=== PATIENT | female | born 2005 | race Caucasian/White ===

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

== ENCOUNTER 2023-11-02 02:03 | Emergency (ER) | payer OTHER, SELFPAY ==
[2023-11-02 02:10] VITALS: BP 128/73; PULSE 87; RESP 22; TEMP 36.4; O2SAT 99; BMI 23.3
--- NOTE | 2023-11-02 02:27 | ED_ITS ---
HPI - Asthma General Chief Complaint: Asthma Stated Complaint: asthma flair up Time Seen by Provider: 11/02/23 02:11 Source: patient Mode of arrival: Ambulatory History of Present Illness HPI Narrative: 18-year-old woman with a history of mild intermittent asthma typically uses her inhaler prior to exercise only presents after an episode of bronchospasm this afternoon. Her aunt and uncle are visiting a brought their dog, she knows that she is allergic to dogs. She has been taking xyzal/levocetirizine daily for the last couple of days and finds that that does help somewhat. The bronchospasm episode was quite frightening for her and she felt that she could not inhale even enough to use her inhaler. Her father had a nebulized albuterol dose and she use this and found it quite helpful. With the increased bronchospasm mom is wondering if there is panic component to the increasing wheeze. There has been no fevers, cough, chills. No nausea vomiting or diarrhea. Related Data Previous Rx's Medication Instructions Recorded azithromycin 250 mg tablet See Rx Instructions PO .COMPLEX #6 04/17/21 tabs prednisone 20 mg tablet 20 mg PO DAILY #5 tabs 04/17/21 prednisone 20 mg tablet 20 mg PO DAILY #5 tabs 10/05/21 prednisone 20 mg tablet 40 mg (2 x 20 mg) PO DAILY #10 tabs 11/02/22 albuterol sulfate 2.5 mg/3 mL 2.5 mg (3 mL) inhalation Q4-6H PRN 11/02/23 (0.083 %) solution for nebulization bronchospasm #75 mL Allergies Allergy/AdvReac Type Severity Reaction Status Date / Time No Known Drug Allergies Allergy Verified 10/05/21 21:51 Review of Systems Review of Systems Narrative: Pertinent positive and negative findings as per HPI Patient History Medical History COVID-19 Asthma Social History Smoking Status: Never smoker Smoking Status: Never smoker Substance Use Type: does not use Exam Initial Vital Signs Initial Vital Signs: Vital Signs Temperature 97.5 F L 11/02/23 02:10 Pulse Rate 87 11/02/23 02:10 Respiratory Rate 22 11/02/23 02:10 Blood Pressure 128/73 11/02/23 02:10 Pulse Oximetry 99 11/02/23 02:10 Oxygen Delivery Method Room Air 11/02/23 02:10 General: Healthy appearing, in no acute distress. Able to give a complete and coherent history. Well-nourished well-developed HEENT: Moist mucous membranes, normal sclera with reactive pupils, Respiratory: Lungs are clear to auscultation, no wheezing no rales no rhonchi. Full and symmetrical air movement Cardiac: Regular rate and rhythm no murmurs no bruits Skin: Warm and dry, no rashes Neurologic: Grossly neurologically intact with no obvious asymmetries or abnormalities Extremities: No trauma, well perfused Psych: Cooperative, appropriate insight and affect Course Vital Signs Vital signs: Vital Signs - 8 hr 11/02/23 02:10 Temperature 97.5 F L Pulse Rate 87 Respiratory Rate 22 Blood Pressure 128/73 Pulse Oximetry 99 Oxygen Delivery Method Room Air MDM - Asthma MDM Narrative Medical decision making narrative: CC: Acute bronchospasm Complicating co-morbidities: Mild intermittent asthma, allergies to dogs Data collected from: patient , mother Differential considered: Acute asthma exacerbation, upper respiratory infection, pneumothorax, bronchospasm secondary to allergic reaction Exam documented above, pertinent findings include: At this time there is no respiratory distress and absolutely normal pulmonary exam no accessory muscle use, no wheezing and full and comfortable respiratory movement Discussion: 18-year-old woman with mild intermittent asthma and dog allergies is home from [employer] and an uncle brought a dog over. Sounds like she had an episode of significant bronchospasm which was quite distressing for her. She was so anxious over the bronchospasm she did not feel she could appropriately use her inhaler with spacer. Her dad used 1 of his albuterol nebulized solutions which completely resolved all of her symptoms. On arrival she is doing well. She currently is taking a daily antihistamine. She does have albuterol MDI with spacer and does know how to use it. While she is home from college she does have access to a nebulizer. She is given prescription for inhaled albuterol to use if she again experiences the severe bronchospasm and panic feeling secondary to that. At this time there is no indication for additional lab evaluation, nebulizer treatments or imaging studies. Findings reviewed with the patient and her mother. Questions are answered and she is safe for discharge Discharge Plan Departure Patient Disposition: Home Clinical Impression: Asthma with acute exacerbation Qualifiers: Asthma severity: mild Asthma persistence: intermittent Qualified Code(s): J45.21 - Mild intermittent asthma with (acute) exacerbation Instructions: DI for Asthma -- Adult Activity Restrictions/Additional Instructions: Thank you for coming in today I believe that you had an acute episode of bronchospasm likely related to your dog allergy rather than a severe persistent asthma attack. Clinically, your lungs are absolutely normal I hear no wheezing there is no extra work of breathing and I am quite pleased with everything and finding. Sometimes with that acute bronchospasm and feeling like something is squeezing your chest tube tightly, using a nebulizer feels better than using your inhaler. Both have the same medication. It is okay to use the 1 that seems to be most effective for you. Make sure that you are using your puffer with a spacer. I have given you some additional albuterol nebulized doses to use with the nebulizer you have at home. If you find that you are getting worse or develop any new symptoms, please feel free to return to the emergency department for further evaluation. Prescriptions: New albuterol sulfate 2.5 mg /3 mL (0.083 %) solution for nebulization 2.5 mg inhalation Q4-6H PRN (Reason: bronchospasm) Qty: 75 0RF No Action prednisone 20 mg tablet 20 mg PO DAILY Qty: 5 0RF azithromycin 250 mg tablet See Rx Instructions .ROUTE .COMPLEX Qty: 6 0RF Rx Instructions: take 500 mg today (day 1), then 250 mg for 4 days (days 2-5) prednisone 20 mg tablet 20 mg PO DAILY Qty: 5 0RF Rx Instructions: administer with food or milk prednisone 20 mg tablet 40 mg PO DAILY Qty: 10 0RF Stand Alone Forms: Patient Portal/API
== END 2023-11-02 02:44 | disposition home or self-care (01) ==
PROVIDERS: Emergency Provider Emergency Medicine
DX: J45.21 Mild intermittent asthma with (acute) exacerbation (principal)
CPT/HCPCS: 99281